=== PATIENT | female | born 1965 | race Caucasian/White ===

== ENCOUNTER 2019-10-16 17:02 | Emergency (ER) | payer SELFPAY ==
[~2019-10-16] VITALS: Ht 167.6 cm; Wt 81.6 kg
[2019-10-16 17:08] VITALS: BP 146/86
[2019-10-16] MEDS ORDERED: LORazepam 2 MG/ML VIAL IVP ONE (17:25)
[2019-10-16] MEDS ORDERED: NACL 0.9% 1,000 ML IV ONE (17:25)
[2019-10-16 17:59] LABS: BASOPHILS % (AUTO) 0.3 % (0.0-2.0); EOSINOPHILS % (AUTO) 0.3 % (0.0-4.0); HEMATOCRIT 42.6 % (36-48); HEMOGLOBIN 13.9 g/dL (12.0-16.0); LYMPHOCYTES # (AUTO) 1.6 K/uL (2.5-16.5); LYMPHOCYTES % (AUTO) 17.8 % (20.5-51.1); MEAN CORPUSCULAR HEMOGLOBIN 31 pg (27-31); MEAN CORPUSCULAR HGB CONC 33 g/dL (33-37); MONOCYTES # (AUTO) 0.6 K/uL (0.8-1.0); MONOCYTES % (AUTO) 6.7 % (1.7-9.3); NEUTROPHILS # (AUTO) 6.6 K/uL (1.8-7.7); NEUTROPHILS % (AUTO) 74.9 % (42.2-75.2); PLATELET COUNT (AUTO) 177 K/uL (140-450); RED BLOOD CELL COUNT(AUTO) 4.53 MIL/uL (4.20-5.40); RED CELL DISTRIBUTION WIDTH 20.2 % (11.6-13.7); WHITE BLOOD COUNT (AUTO) 8.8 K/uL (4.8-10.8)
[2019-10-16 18:39] LABS: ALBUMIN 3.8 g/dL (3.4-5.0); ANION GAP 25.5 (8-16); CREATININE 1.2 mg/dL (0.6-1.3); POTASSIUM 3.5 mmol/L (3.5-5.1); TOTAL BILIRUBIN 0.7 mg/dL (0.0-1.0)
[2019-10-16 19:03] VITALS: BP 137/79
== END 2019-10-16 19:03 | disposition home or self-care (01) ==
LOC: MED 17:02
DX: F10.239 Alcohol dependence with withdrawal, unspecified (principal); F41.9 Anxiety disorder, unspecified; Z88.0 Allergy status to penicillin; Z88.1 Allergy status to other antibiotic agents
CPT/HCPCS: 36415; 71045; 80053; 83690; 85025; 96374; 99284; J2060; J7030; Q0092

== ENCOUNTER 2019-12-25 07:32 | Emergency (ER) | payer MEDICAID ==
[~2019-12-25] VITALS: Ht 167.6 cm; Wt 90.7 kg
--- NOTE | 2019-12-25 07:32 | NUR ---
Patient BIBA BLS, transferred to bed 11. RN evaluating patient at bedside.
[2019-12-25 07:35] VITALS: BP 129/87
--- NOTE | 2019-12-25 07:40 | NUR ---
PT BIBA FOR ETOH PER EMS. PT IS A&OX4 UPON ARRIVAL, AND STATES: "I CALLED 911 DUE TO THE NOISE UPSTAIRS THAT THE GIRL MADE AND THAT IS THE ONLY RESEASON I AM HERE." PT C/O LEFT ANKLE PAIN 5/10 AT THIS TIME S/P BROKE HER ANKLE. NO EDEMA, ERYTHEMA, OR DEFORMITY NOTICED ON HER LEFT ANKLE. PT DENIES ANY FEVER, CP, SOB, OR COUGH AT THIS TIME; PATIENT STATES PAIN OF 5/10 AT THIS TIME; VSS; PATIENT POSITIONED FOR COMFORT; HOB ELEVATED; BEDRAILS UP X2; BED DOWN. ER MD MADE AWARE OF PT STATUS.
[2019-12-25] MEDS ORDERED: NACL 0.9% 1,000 ML IV ONE (07:45)
[2019-12-25 08:00] VITALS: BP 125/85
--- NOTE | 2019-12-25 08:00 | NUR ---
Patient discharged with v/s stable. Written and verbal after care instructions given and explained. Patient verbalized understanding. Ambulatory with steady gait. All questions addressed prior to discharge. Advised to follow up with PMD. [facility] called for pt.
--- NOTE | 2019-12-25 08:04 | NUR ---
Taxi set up for patient. ETA 45 mins. Pt waiting in ER lobby for taxi. Voucher provided.
--- NOTE | 2019-12-29 07:56 | NUR ---
LATE ENTRY- NORMAL SALINE 0.9% BOLUS DISCONTINUED AT 0800.
== END 2019-12-25 08:00 | disposition home or self-care (01) ==
LOC: MED 07:32
DX: F10.129 Alcohol abuse with intoxication, unspecified (principal); F41.9 Anxiety disorder, unspecified; R73.03 Prediabetes; Y90.9 Presence of alcohol in blood, level not specified
CPT/HCPCS: 99283